=== PATIENT | female | born 1970 | race African-American/Black ===

== ENCOUNTER 2017-06-16 18:42 | Emergency (ER) | payer OTHER, SELFPAY ==
[2017-06-16] MEDS ORDERED: Ondansetron ODT 4 MG TAB ONE (19:50)
[2017-06-16] MEDS ORDERED: Ibuprofen 800 MG TAB ONE (19:50)
== END 2017-06-16 21:03 | disposition home or self-care (01) ==
LOC: ERS 18:42
DX: J11.1 Influenza due to unidentified influenza virus with other respiratory manifestations (principal)
CPT/HCPCS: 99283; Q0162